=== PATIENT | female | born 1965 ===

== ENCOUNTER 2025-08-10 06:09 | Day surgery (SDC) | payer BC, SELFPAY ==
[2025-08-04 11:33] LABS: Hematocrit 44.7 % (37.0-47.0); Hemoglobin 14.5 g/dL (12.0-16.0); Mean Corp Hgb Conc. 32.4 g/dL (33.0-37.0); Mean Corpuscular Volume 98.2 fL (81.0-99.0); Nucleated Red Blood Cells % 0 %; Platelet Count 251 10^3/uL (130-400); Red Cell Dist. Width 11.9 % (11.5-14.5)
[2025-08-04 12:10] LABS: Blood Urea Nitrogen 18 mg/dl (7-17); Calcium 9.9 mg/dl (8.4-10.2); Carbon Dioxide 24 mmol/L (22-30); Chloride 110 mmol/L (98-107); Glucose 82 mg/dl (70-99); Potassium 4.7 mmol/L (3.5-5.1); Sodium 140 mmol/L (135-145); eGFR 51.50
[2025-08-04 13:56] VITALS: BMI 28.4
--- NOTE | 2025-08-04 14:59 | PTCARENOTE ---
Paige in office made aware GFR 51.50, no prior levels available.
[2025-08-10] VITALS (17 sets, daily range): BP systolic 111–146; BP diastolic 69–90; BMI 28.4
[2025-08-10] MEDS: TYLENOL 1000 MG PO (07:45)
[2025-08-10] MEDS: DILAUDID 0.5 MG IV ×2 (10:14→10:39)
== END 2025-08-10 13:30 | disposition home or self-care (01) ==
LOC: SDS 06:09
PROVIDERS: ATTENDING PHYSICIAN Student in an Organized Health Care Education/Training Program; FAMILY PHYSICIAN Emergency Medicine
DX: M20.22 Hallux rigidus, left foot (principal); M79.672 Pain in left foot
CPT/HCPCS: 28750; 36415; 80048; 85025; 93005; C1713